=== PATIENT | male | born 1945 | race Caucasian/White ===

== ENCOUNTER 2017-11-18 17:52 | Emergency (ER) | payer OTHER, MEDICARE ==
[~2017-11-18] VITALS: Ht 167.6 cm; Wt 79.9 kg
[~2017-11-18 17:52] MED LIST: AMLO-110 PO; ASPI81TA28 PO; DXY100 PO; LEVE500T13 PO; LISI-788 PO; TRMCR130WC TOP
[2017-11-18 17:57] VITALS: Ht 167.6 cm; Wt 79.9 kg
--- NOTE | 2017-11-18 18:39 | EMERGENCY ROOM VISIT NOTE ---
History Report prepared by Kyaw: Ish Garcia Under the Supervision of: Dr. Raghav Neely D.O. First contact with patient: 18:28 Chief Complaint: HYPERTENSION Stated Complaint: ELEVATED BLOOD PRESSURE 192/96 History of Present Illness The patient is a 72 year old male who presents to the Emergency Room with concerns over recent blood pressure irregularities. The patient states that his blood pressure has been "jumping around" and notes that today his pressure was 197 systolically. He called his PCP and a nurse instructed him to come to the emergency department. He denies any related symptoms and notes he "feels great. " He denies any headache, weakness, chest pain, or shortness of breath. He has a history of hypertension and takes medications daily. Source of History: patient Onset: Recent Position: other (Cardiovascular) Quality: other (HTN) Associated Symptoms: No headache, No chest pain, No SOB Review of Systems See HPI for pertinent positives & negatives. A total of 10 systems reviewed and were otherwise negative. Past Medical & Surgical Medical Problems: (1) Cellulitis Family History Hypertension Social History Smoking Status: Never Smoker Marital Status: Housing Status: lives with family, lives with significant other Occupation Status: retired Current/Historical Medications Scheduled Amlodipine (Norvasc), 5 MG PO DAILY Aspirin (Aspirin Ec), 81 MG PO DAILY Levetiracetam (Keppra), 500 MG PO BID Lisinopril/Hctz (Zestoretic 20MG/25MG), 1 TAB PO DAILY Allergies Coded Allergies: No Known Allergies (Unverified , 11/18/17) Physical Exam Vital Signs Date Time Temp Pulse Resp B/P (MAP) Pulse Ox O2 Delivery O2 Flow Rate FiO2 11/18/17 21:02 36.8 60 16 164/96 96 11/18/17 20:04 60 16 164/96 96 Room Air 11/18/17 19:13 64 11/18/17 17:57 36.8 64 16 189/97 96 Room Air Physical Exam GENERAL: Patient is awake, alert, and in no acute distress. Patient is resting comfortably and showing no signs of anxiety EYES: The conjunctivae are clear. The pupils are round and reactive. EARS, NOSE, MOUTH AND THROAT: The nose is without any evidence of any deformity. Mucous membranes are moist tongue is midline NECK: The neck is nontender and supple. RESPIRATORY: Normal respiratory effort is noted there is no evidence of wheezing rhonchi or rales CARDIOVASCULAR: Regular rate and rhythm noted there no murmurs rubs or gallops normal S1 normal S2 GASTROINTESTINAL: The abdomen is soft. Bowel sounds are present in all quadrants. Abdomen is nontender MUSCULOSKELETAL/EXTREMITIES: There is no evidence of gross deformity full range of motion is noted in the hips and shoulders SKIN: There is no obvious evidence of any rash. There are no petechiae, pallor or cyanosis noted. NEUROLOGIC: Patient is awake alert and oriented x3 strength is symmetric patellar reflexes are 2+ bilaterally Medical Decision & Procedures ER Provider Diagnostic Interpretation: Radiology results as stated below per my review and radiologist interpretation: CHEST ONE VIEW PORTABLE CLINICAL HISTORY: Atypical chest pain COMPARISON STUDY: June 23, 2011 FINDINGS: The cardiac and mediastinal contours are normal. There is no evidence of focal pulmonary consolidation. There is no evidence of failure. No pleural effusions are visualized.[ IMPRESSION: No active disease in the chest. Electronically signed by: Miguel Ángel Payne M.D. 11/18/2017 7:20 PM Dictated Date/Time: 11/18/2017 7:20 PM Laboratory Results 11/18/17 19:10 Red Blood Count 4.99, Mean Corpuscular Volume 88.2, Mean Corpuscular Hemoglobin 32.3, Mean Corpuscular Hemoglobin Concent 36.6, Mean Platelet Volume 9.9, Neutrophils (%) (Auto) 58.6, Lymphocytes (%) (Auto) 30.9, Monocytes (%) (Auto) 7.4, Eosinophils (%) (Auto) 2.6, Basophils (%) (Auto) 0.5, Neutrophils # (Auto) 3.64, Lymphocytes # (Auto) 1.92, Monocytes # (Auto) 0.46, Eosinophils # (Auto) 0.16, Basophils # (Auto) 0.03 11/18/17 19:10 Test 11/18/17 19:10 11/18/17 20:42 White Blood Count 6.21 K/uL (4.8-10.8) Red Blood Count 4.99 M/uL (4.7-6.1) Hemoglobin 16.1 g/dL (14.0-18.0) Hematocrit 44.0 % (42-52) Mean Corpuscular Volume 88.2 fL (80-100) Mean Corpuscular Hemoglobin 32.3 pg (25-34) Mean Corpuscular Hemoglobin Concent 36.6 g/dl (32-36) Platelet Count 220 K/uL (130-400) Mean Platelet Volume 9.9 fL (7.4-10.4) Neutrophils (%) (Auto) 58.6 % Lymphocytes (%) (Auto) 30.9 % Monocytes (%) (Auto) 7.4 % Eosinophils (%) (Auto) 2.6 % Basophils (%) (Auto) 0.5 % Neutrophils # (Auto) 3.64 K/uL (1.4-6.5) Lymphocytes # (Auto) 1.92 K/uL (1.2-3.4) Monocytes # (Auto) 0.46 K/uL (0.11-0.59) Eosinophils # (Auto) 0.16 K/uL (0-0.5) Basophils # (Auto) 0.03 K/uL (0-0.2) RDW Standard Deviation 41.6 fL (36.4-46.3) RDW Coefficient of Variation 13.1 % (11.5-14.5) Immature Granulocyte % (Auto) 0.0 % Immature Granulocyte # (Auto) 0.00 K/uL (0.00-0.02) Anion Gap 4.0 mmol/L (3-11) Est Creatinine Clear Calc Drug Dose 59.4 ml/min Estimated GFR () 76.8 Estimated GFR (Non- 66.2 BUN/Creatinine Ratio 13.3 (10-20) Calcium Level 8.8 mg/dl (8.5-10.1) Total Bilirubin 0.7 mg/dl (0.2-1) Direct Bilirubin 0.2 mg/dl (0-0.2) Aspartate Amino Transf (AST/SGOT) 14 U/L (15-37) Alanine Aminotransferase (ALT/SGPT) 26 U/L (12-78) Alkaline Phosphatase 68 U/L (45-117) Troponin I < 0.015 ng/ml (0-0.045) Total Protein 7.5 gm/dl (6.4-8.2) Albumin 4.1 gm/dl (3.4-5.0) Urine Color YELLOW Urine Appearance CLEAR (CLEAR) Urine pH 7.0 (4.5-7.5) Urine Specific [place] 1.013 (1.000-1.030) Urine Protein NEG (NEG) Urine Glucose (UA) NEG (NEG) Urine Ketones NEG (NEG) Urine Occult Blood NEG (NEG) Urine Nitrite NEG (NEG) Urine Bilirubin NEG (NEG) Urine Urobilinogen NEG (NEG) Urine Leukocyte Esterase NEG (NEG) Laboratory results per my review. ECG Indication: other (hypertension) Rate (beats per minute): 57 Rhythm: sinus bradycardia Findings: no acute ischemic change, no ectopy Comparison ECG Date: 06/23/2011 Change: no significant change ED Course 1832: The patient was evaluated in room C4. A complete history and physical examination were performed. 2051: Upon reevaluation, the patient is resting in bed, he is still comfortable. I discussed the results and treatment plan with him. He verbalized agreement of the treatment plan. The patient was discharged home. Medical Decision Differential Diagnosis was concerning for hypertension. Nursing notes reviewed. The patient is a 72-year-old male who has a history of hypertension who presented to the emergency department because his home readings have been elevated more than usual. The patient states that he has been compliant with his medications. He's had no medication changes recently. He has no symptoms including at this time he denies having chest pain shortness of breath dizziness headache or difficulty ambulating. The patient called his primary care physician to get an appointment but he was told to go to the emergency department. I discussed the patient's laboratory and radiographic studies with him. He was in the emergency Department his blood pressure improved. He was encouraged to rest and avoid any strenuous activity. He was also encouraged to continue all medications as prescribed. He was set up with an appointment by the emergency Department case monitor. He was encouraged to keep this appointment but return to the emergency department immediately if symptoms change worsen or the need arises. Medication Reconcilliation Current Medication List: was personally reviewed by me Blood Pressure Screening Patient's blood pressure: Elevated blood pressure Blood pressure disposition: Referred to PCP Impression Primary Impression: Hypertension Scribe Attestation The scribe's documentation has been prepared under my direction and personally reviewed by me in its entirety. I confirm that the note above accurately reflects all work, treatment, procedures, and medical decision making performed by me. Departure Information Dispostion Home / Self-Care Referrals Angy,Noman F.JR,M.D.(NIGEL) (PCP) Forms HOME CARE DOCUMENTATION FORM, IMPORTANT VISIT INFORMATION, WORK / SCHOOL INSTRUCTIONS Patient Instructions My [facility] Additional Instructions Continue all medications as prescribed. Rest and avoid any strenuous activity. Follow-up with your family doctor as scheduled for a blood pressure check. Return to the emergency department immediately symptoms change worsen or the need arises. Problem Qualifiers Primary Impression: Hypertension Hypertension type: unspecified Qualified Codes: I10 - Essential (primary) hypertension
--- NOTE | 2017-11-18 19:21 | DIAGNOSTIC IMAGING REPORT ---
CHEST ONE VIEW PORTABLE CLINICAL HISTORY: Atypical chest pain COMPARISON STUDY: June 23, 2011 FINDINGS: The cardiac and mediastinal contours are normal. There is no evidence of focal pulmonary consolidation. There is no evidence of failure. No pleural effusions are visualized.[ IMPRESSION: No active disease in the chest. Electronically signed by: Miguel Ángel Payne M.D. 11/18/2017 7:20 PM Dictated Date/Time: 11/18/2017 7:20 PM
[2017-11-18 19:37] LABS: BASO % 0.5 %; BASO ABS # 0.03 K/uL (0-0.2); EOS % 2.6 %; EOS ABS # 0.16 K/uL (0-0.5); HEMOGLOBIN 16.1 g/dL (14.0-18.0); LYMPH % 30.9 %; LYMPH ABS # 1.92 K/uL (1.2-3.4); MEAN CELL VOLUME 88.2 fL (80-100); MEAN CORPUSCULAR HEMOGLOBIN 32.3 pg (25-34); MEAN CORPUSCULAR HGB CONC 36.6 g/dl (32-36); MEAN PLATELET VOLUME 9.9 fL (7.4-10.4); MONO % 7.4 %; MONO ABS # 0.46 K/uL (0.11-0.59); NEUT % 58.6 %; NEUT ABS # 3.64 K/uL (1.4-6.5); PLATELET COUNT 220 K/uL (130-400); RED CELL DISTRIBUTION WIDTH CV 13.1 % (11.5-14.5); RED CELL DISTRIBUTION WIDTH SD 41.6 fL (36.4-46.3); WHITE BLOOD COUNT 6.21 K/uL (4.8-10.8)
[2017-11-18 20:04] LABS: ALBUMIN 4.1 gm/dl (3.4-5.0); ALT/SGPT 26 U/L (12-78); AST/SGOT 14 U/L (15-37); BLOOD UREA NITROGEN 15 mg/dl (7-18); CALCIUM 8.8 mg/dl (8.5-10.1); CARBON DIOXIDE 31 mmol/L (21-32); GLUCOSE 90 mg/dl (70-99); POTASSIUM 3.5 mmol/L (3.5-5.1); SODIUM 140 mmol/L (136-145)
[2017-11-18 20:08] LABS: ALKALINE PHOSPHATASE 68 U/L (45-117); TOTAL PROTEIN 7.5 gm/dl (6.4-8.2)
[2017-11-18 21:02] VITALS: BP 164/96; PULSE 60; TEMP 36.8; O2SAT 96
== END 2017-11-18 21:03 | disposition home or self-care (01) ==
LOC: C.EDB 17:54 → C.EDC 21:03
DX: I10 Essential (primary) hypertension (principal); Z82.49 Family history of ischemic heart disease and other diseases of the circulatory system; Z79.82 Long term (current) use of aspirin; Z79.899 Other long term (current) drug therapy

== ENCOUNTER 2024-08-03 05:05 | Observation (INO) ==
--- NOTE | 2024-06-19 13:33 | PAT Medication Instructions ---
Medication Instructions Date of Service June 19, 2024 Home Medications carvedilol 3.125 mg tablet 3.125 mg PO QAM hydrochlorothiazide 25 mg tablet 25 mg PO QAM levetiracetam 500 mg tablet (Keppra) 500 mg PO BID atorvastatin 20 mg tablet 20 mg PO QAM lisinopril 40 mg tablet 40 mg PO QAM DO NOT take the morning of surgery hydrochlorothiazide 25 mg tablet 25 mg PO QAM lisinopril 40 mg tablet 40 mg PO QAM Take morning of surgery With a small sip of water, OTHERWISE NOTHING TO EAT OR DRINK AFTER MIDNIGHT: carvedilol 3.125 mg tablet 3.125 mg PO QAM levetiracetam 500 mg tablet (Keppra) 500 mg PO BID atorvastatin 20 mg tablet 20 mg PO QAM Take evening before surgery levetiracetam 500 mg tablet (Keppra) 500 mg PO BID Other Notes If you have any questions please call us at [phone] or [phone] or [phone] or [phone]
--- NOTE | 2024-06-29 08:21 | Anesthesiology Consultation ---
Date of Service June 29, 2024 Assessment & Plan (1) Encounter for pre-operative examination: - Check BSG AM DOS (Elevated glucose at 188 on preop labs. Patient denies prediabetes/diabetes history. Will update BSG DOS) - Infectious disease screening: Per assessment on 06/29/24: No known recent infectious disease contacts or current infectious disease symptoms. - Outpatient joint assessment: Pt currently scheduled for inpatient pathway. If surgeon requests review for outpatient joint pathway, patient is not recommended candidate for outpatient joint program from anesthesia standpoint based on available information. Chart Review Chart Review: Acceptable Risk for Surgery and Patient seen in Pre Admission Testing Teaching & Discussion Pre-Anesthesia Teaching/Discussion Notes: Instructed NPO after midnight before surgery,except medications with 15 cc of water. Medication instructions provided according to the PAT guidelines. History Surgery Operation Date: 08/03/24 09:15 Proposed Procedures p Left Total Knee Arthroplasty - Kishor Noonan, Height/Weight Height: 5 ft 5 in Weight: 79.6 kg Allergies Allergy/AdvReac Type Severity Reaction Status Date / Time No Known Allergies Allergy Verified 06/17/24 09:13 Medications Home Medications Medication Instructions Recorded Confirmed Last Taken carvedilol 3.125 mg tablet 3.125 mg PO QAM 09/25/21 06/17/24 10/11/21 hydrochlorothiazide 25 mg tablet 25 mg PO QAM 09/25/21 06/17/24 Unknown levetiracetam 500 mg tablet 500 mg PO BID 09/25/21 06/17/24 10/04/21 (Keppra) atorvastatin 20 mg tablet 20 mg PO QAM 06/17/24 06/17/24 Unknown lisinopril 40 mg tablet 40 mg PO QAM 06/17/24 06/17/24 Unknown Past Medical History Medical History 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) Life flighted to [place] from [facility] No surgical intervention, medically managed and "resolved" per patient History of skin cancer nose, removal Hypertension Osteoarthritis of left knee Seizure Occurred after UTI sepsis 2010 (No seizure since) Taking Keppra Tendonitis of shoulder, right Exercise / Class Metabolic Activity II 4-5 Yardwork/Stairs/Walk up hill Past Family History Family History Other No family history of adverse response to anesthesia Past Surgical History Surgical History History of colonoscopy History of knee surgery Right History of left cataract surgery History of right cataract surgery 10[place]2021, [facility] [place] Past Anesthesia History No Hx of Anesthesia Complications and No Family Hx of Anesthesia Complications History of PONV No Hx of PONV and No Hx of Motion Sickness Social History Smoking Status: Never smoker Do You Dip or Chew Tobacco: No Hx Alcohol Use: No Hx Substance Use: No substance use type: does not use Review of Systems Patient denies chest pain, shortness of breath, dyspnea on exertion, fever, chills, cough, wheezing, palpitations. Physical Exam Vital Signs BP 197/101 > 177/88 with manual recheck (patient states he did not take his BP meds this morning. After PAT visit, he took his medication and did a home recheck BP which came back improved at 150/80. Patient was advised of the importance of med compliance and advised to contact PCP if persistently elevated.) P 65 TEMP 97.6 SP02 96%RA RESP 18 Physical Full cervical extension range of motion. Full TMJ range of motion. TMD 3 finger breaths Mallampati Score III Dentition: several missing teeth, upper partial Lungs: clear throughout to auscultation Cardiac: regular rate and rhythm, no murmurs noted Spine: normal Carotid arteries: negative bruit Extremities: no LE edema Lab Results Anesthesia Preop Results Results Anesthesia Widget: WBC 8.43 K/ul (4.8-10.8) 06/29/24 Hgb 16.0 g/dl (14.0-18.0) 06/29/24 Hct 45.6 % (42.0-52.0) 06/29/24 Plt 214 K/uL (130-400) 06/29/24 Na 140 mmol/L (136-145) 06/29/24 K 3.5 mmol/L (3.5-5.1) 06/29/24 Cl 102 mmol/L (98-107) 06/29/24 CO2 31 mmol/L (21-32) 06/29/24 BUN 22 mg/dl (6-23) 06/29/24 Creat 1.03 mg/dl (0.6-1.4) 06/29/24 Glucose Level 188 mg/dl (70-99(Fasting)) H 06/29/24 PT 10.3 Seconds (9.0-12.0) 06/29/24 PTT 26 Seconds (21-31) 06/29/24 INR 0.9 (0.9-1.1) 06/29/24 Blood Type A Negative 06/29/24 Antibody Screen NEGATIVE 06/29/24 Testing Electrocardiogram Date: 06/29/24 NSR at 63bpm. LAD. iRBBB. NS ST/TWA. Chest X-Ray Date: 06/29/24 Findings: + NAD
--- NOTE | 2024-07-30 09:21 | History & Physical Report ---
Date of Service July 30, 2024 Assessment & Plan (1) Osteoarthritis of left knee: We will proceed with a left total knee arthroplasty. Postoperatively he will be started on aspirin for DVT prophylaxis and kept overnight in the hospital for postop medical management. He plans to have the hospital set up home health before discharge. History of Present Illness Chief Complaint: Osteoarthritis of the left knee. Primary Care Provider: Vadim Post MD Wallace is a pleasant 78-year-old male who has been dealing with chronic increasing left knee pain. He has been seeing Dr. Everett who has done extensive conservative treatment including multiple injections. Unfortunately, his knee pain is getting worse. He is having trouble going up and down stairs. He is having trouble walking long distances. X-rays and clinical exam and been diagnostic for advanced osteoarthritis of the left knee. After failing conservative treatment, he has elected to proceed with a left total knee arthroplasty. Allergies Allergy/AdvReac Type Severity Reaction Status Date / Time No Known Allergies Allergy Verified 06/17/24 09:13 Home Medications Medication Instructions Recorded Confirmed Type carvedilol 3.125 mg tablet 3.125 mg PO QAM 09/25/21 06/17/24 History hydrochlorothiazide 25 mg tablet 25 mg PO QAM 09/25/21 06/17/24 History levetiracetam 500 mg tablet 500 mg PO BID 09/25/21 06/17/24 History (Keppra) atorvastatin 20 mg tablet 20 mg PO QAM 06/17/24 06/17/24 History lisinopril 40 mg tablet 40 mg PO QAM 06/17/24 06/17/24 History magnesium oxide 400 mg (241.3 mg 400 mg PO DAILY #7 tabs 07/18/24 Rx magnesium) tablet (MagOx) amlodipine 2.5 mg tablet 2.5 mg PO QAM 07/27/24 07/27/24 History Past Med/Surg History Problem List Hypertension (Acute) Leukocytosis (Acute) Hypomagnesemia (Acute) Acute dehydration (Acute) Syncope (Acute) Osteoarthritis of left knee Encounter for pre-operative examination Medical History Osteoarthritis of left knee Tendonitis of shoulder, right History of skin cancer nose, removal 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) Life flighted to [place] from [facility] No surgical intervention, medically managed and "resolved" per patient Seizure Occurred after UTI sepsis 2010 (No seizure since) Taking Keppra Hypertension Surgical History History of right cataract surgery 10/2021, [facility] [place] History of left cataract surgery History of knee surgery Right History of colonoscopy Family History Other No family history of adverse response to anesthesia Social History Smoking Status: Former smoker Second Hand Exposure: No; Do You Dip or Chew Tobacco: No; Tobacco Cessation Education Requested by Patient: No Hx Alcohol Use: No Hx Substance Use: No Preferred Language: Bangladeshi Communication Ability: Effective Nurse Substance Abuse Required: No Beliefs That Will Affect Care: None Current Living Situation: Alone Other Information That Helps Us Care for You: No Feels Safe at Home: Yes Safety Concerns: Feels Safe At This Time Assistive Devices: Glasses Review of Systems All systems reviewed & are unremarkable except as noted in HPI & below. Physical Exam On physical exam of the left knee, he has a slight varus deformity. He has tenderness to palpation of the distal medial femoral condyle and over the medial joint line.. Constitutional WD/WN, vitals as above Eyes PERRL, conjunctivae normal, anicteric sclerae ENMT external ear and nose normal, oropharynx normal Neck trachea midline, no thyromegaly Respiratory normal respiratory effort Cardiovascular RRR, no murmur, no edema Gastrointestinal (Abdomen) normal bowel sounds, soft, nontender, no hepatosplenomegaly Psychiatric A+Ox3, euthymic affect Results & Data Results & Data Laboratory Results . Diagnostic Findings X-rays of the left knee show advanced osteoarthritis with joint space narrowing osteophyte formation and [id number] articulation. PG Care Time/CCT Total # of Minutes Spent Total Time Spent with Patient: Total time spent is greater than 50% in coordination of care (as documented) at patient's floor/unit and/or counseling patient: Coding Level of Care Code None Diagnoses Osteoarthritis of left knee M17.12
--- OUTSIDE RECORDS SUMMARY | 2024-08-03 05:11 | External Medical Summary ---
Author Name Unknown Address Unknown Organization K01:[facility] [address] [place] [id number] Laboratory Report Ordering Provider Test Date Status SELENE RODRIGUES 07/27/2024 11:32:35 Final Observation Date Value Abnormality Reference (Units ) Status Magnesium 07/27/2024 11:32:35 2.0 1.5-2.6 (m g/dL) Final Performing Location [facility] [address] [place] [id number]
--- OUTSIDE RECORDS SUMMARY | 2024-08-03 05:11 | External Medical Summary | Summary of Care ---
Author Name Unknown Organization [facility] Address [address] [place] [address] Phone [phone] Care Team Providers Care Card Sorter Name Role Phone Vadim Post MD Primary Care Provider [phone] Reason for Visit * Reason Comments Outpatient Testing Encounter Details Date Type Department Care Team (Late st Contact Info) Description 07/27/2024 11:40 AM EDT Laboratory Laboratory, [facility] [address] [place] [address] [facility] [address] [place] [address] Hypomagnesemia Allergies No known active allergiesdocumented as of this encounter (statuses as of 07/27/2024) Medications Medication Sig Dispensed Refills Start Date End Date Status Lisinopril 40 MG Oral Tablet Take 1 Tablet by mouth in the morning. 90 Tablet 3 09/16/2023 Active Carvedilol 3.125 MG Oral Tablet (Coreg) TAKE 1 TABLET BY MOUTH IN THE MORNING AND 1 TABLET BEFORE BEDTIME WITH FOOD 180 Tablet 3 10/26/2023 Active Fluticasone Propionate 50 MCG/ACT Nasal Suspension (Flonase) Administer 2 Sprays into each nostril in the morning. 16 g 11 11/25/2023 Active hydroCHLOROthiazide 25 MG Oral Tablet (Hydrodiuril)Indica tions:HTN, goal below 140/90 TAKE 1 TABLET BY MOUTH EVERY DAY 90 Tablet 2 01/27/2024 Active Atorvastatin Calcium 20 MG Oral Tablet (Lipitor) TAKE 1 TABLET BY MOUTH EVERY DAY 90 Tablet 3 01/27/2024 Active levETIRAcetam 500 MG Oral Tablet (Keppra) TAKE 1 TABLET BY MOUTH EVERY DAY IN THE MORNING AND AT BEDTIME 180 Tablet 1 06/16/2024 Active Magnesium Oxide -Mg Supplement 400 (240 Mg) MG Oral Tablet (Mag-Ox) Take 1 Tablet by mouth in the morning. 07/18/2024 Active amLODIPine Besylate 2.5 MG Oral Tablet (Norvasc) Take 1 Tablet by mouth in the morning. 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 Needs fu MRI in 08/2014 MRI brain 07/2014 stable 8x8 mm follow-up MRI 07/2016 Stable 06/2016, follow-up 06/2019 HTN, goal below 150/90 documented as of this encounter (statuses as of 07/27/2024) Resolved Problems Problem Noted Date Diagnosed Date Resolved Date Kidney disease, chronic, sta ge III (GFR 30-59 ml/min) 10/18/2015 07/30/2017 Intracranial abscess 07/28/2014 015 Abscess of brain 11/08/2011 05/21/2014 Grand mal status 06/24/2011 04/20/2015 Altered mental status 06/24/20112012 GRAM-NEG SEPTICEMIA 06/24/2011 11/24/19 13 Acute renal insufficiency 06/24/2011 Abnormal results of liver function studies 06/24/2011 05/21/2014 THROMBOCYTOPENIA 06/24/2011 05/21/2014 HX-SKIN MALIGNANCY NEC - R ala 10/200908/16/2010 10/17/2022 Overview: BCC midback 10/2020, BCCs R cheek 10/2018, L nasal tip 08/2015, R nasal ala 10/2009 ADVANCE DIRECTIVE INFORMATION 10/19/2009 04/10/2021 Overview: Yes, Patient instructed to provide copy of advance directive for provider to review and to be scanned into Electronic Medical Record Impotence of organic origin 10/21/2008 04/10/2021 DVT of lower extremity (deep venous thrombosis) 11/24/2012 Overview: right Tubular adenoma of colon documented as of this encounter (statuses as of 07/27/2024) Immunizations Name Administration Dates Next Due COVID-19 mRNA, LNP-s, No Pre serve, 2-Dose Series (Pfizer) 01/27/2021,01/06/2021 Pneumococcal Conjugate Vacc, 13 Valent (Prevnar) 04/17/2016 Pneumococcal Polysaccharide PPV23 (Pneumovax) 10/20/2009 Season Influenza, Quad, PF, Adjuvanted, 65+ Yrs, IM (FLUAD) 08/16/2020 Seasonal Influenza, High Dos e, Trivalent, PF, IM (Fluzone HD) 07/27/2024 Seasonal Influenza, PF, 6 M & above, IM , (FluLaval or Fluzone) 09/09/2018,07/30/2017 Seasonal Influenza, Quadriva lent Hd (Fluzone Hd) 09/16/2023,10/17/2022,10/16/2021 Seasonal Influenza, Quadriva lent, No Preserve, IM 08/15/2016,10/18/2015 Seasonal Influenza, Trivalen t, (IIV3), with Preserv, (Fluzone) 07/28/2014,07/21/2013,09/11/2012,10/20,10/21/2008,09/14/2006 Seasonal Influenza, Trivalen t, Adjuvanted, 65+ YRS, PF, (Fluad) 08/06/2019 TDAP (age 10 and older)(Boostrix) 02/09/2023,01/2015 TDAP, Age 7 and older, IM (Adacel) 04/28/2008 Varicella Zoster Vaccine (Adult) 09/16/2013 Zoster Vaccine Recombinant (Shingrix) 06/04/2020 documented as of this encounter Social History Tobacco Use Types Packs/Day Years Used Date Smoking Tobacco: Never Smokeless Tobacco: Never Alcohol Use Standard Drinks/Week Comments No 0 (1 standard drink = 0.6 oz pur e alcohol) PHQ-2 Answer Date Recorded PHQ Adult Total Score 0 10/17/2022 Hunger Vital Sign Answer Date Recorded Within the past 12 months, y ou worried that your food would run out before you got the money to buy more. Never true 10/17/20 22 Within the past 12 months, t he food you bought just didn't last and you didn't have money to get more. Never true 10/17/2022 Sex and Gender Information Value Date Recorded Sex Assigned at Male 04/13/2020 10:29 AM EDT Gender Identity Male 04/13/2020 10:29 AM EDT Sexual Orientation Straight 04/13/2020 10 :29 AM EDT Job Start Date Occupation Industry Not on file Not on file Not on file documented as of this encounter Plan of Treatment Upcoming Encounters Date Type Department Care Team (Late st Contact Info) Description 10/19/2024 10:20 AM EST Office Visit Family Practice [facility] [address] [address] [address] Vadim Post MD [address] [place] [address] 04/29/2025 10:00 AM EDT Office Visit Neurology [facility] [address] [place] [address] Zandra Bradford MD [address] [place] [address] 06/15/2025 11:15 AM EDT Office Visit Dermatology [facility] [address] [place] [address] Woody Camacho MD [address] [place] [address] Pending Results Name Type Priority Associated Diagnoses Date /Time MAGNESIUM Lab Routine Hypomagnesemia 07/27/2024 11:32 AM EDT BASIC METABOLIC PANEL Lab Routine Hypomagnesemia 07/27/2024 11:32 AM EDT Health Maintenance Due Date Last Done Comments Adult Wellness Visit 06/10/2018 06/10/2017 Zoster Vaccines (3 of 3) 07/30/2020 06/04/2020, 09/04 Colonoscopy 07/11/2022 07/11/2021, 05/2021, 05/30/2020, Additional history exists Depression Screening 10/17/2023 10/17/2022 COVID-19 Vaccine ( season) 2024 01/27/2021, 01/06/2021 GFR 10/14/2024 10/14/2023, 04/05, 10/17/2022, Additional history exists HbA1c 10/14/2024 10/14/2023, 10/04, 04/14/2021, Additional history exists Albumin/Creatinine Ratio 10/14/2026 10/14/2023 DTap/Tdap Vaccines (4 - Td or Tdap) 02/09/2033 02/09/2023, 06/06/2015, 04/28/2008 Pneumococcal Vaccine: 65+ Years Completed 04/17/2016, 10/20/2009 RETIRED - COLONOSCOPY-ANNUAL AGES 18-100 Discontinued 07/11/2021, 07/11/2021, 05/30/2020, Additional history exists Influenza Vaccine (FLU shot) Completed 07/27/2024, 09/16/2023, 10/17/2022, Additional history exists HPV (Gardasil) Vaccine Aged Out No lo nger eligible based on patient's age to complete this topic Hepatitis B Vaccine Aged Out No longe r eligible based on patient's age to complete this topic MENINGOCOCCAL (MENACTRA/MENVEO) Aged Out No longer eligible based on patient's age to complete this topic documented as of this encounter Medical Devices Implanted Type Area Rate Engineer Device Identifier Shelf Expiration Date Model / Serial / Lot Clip Quick 2.8mm 230cm - [id number] Implanted:Qty: 1 on 05/30/2020 by Kenzie Lim MD at ENDOSCOPY [facility] [employer] [facility] 09/02/2022 [id number] documented as of this encounter Visit Diagnoses Diagnosis Hypomagnesemia Disorders of magnesium metabolism documented in this encounter Advance Directives * Full Code (Latest Code Status on File) Date Activated Date Inactivated Comments 06/24/2011 3:57 AM 07/07/2011 4:27 PM This order re flects the patients wishes and were consensually agreed upon. Question Answer Comments Discussion of Advance Directives occurred with: Not Discussed Does the patient have a Living Will? No Does the patient have Health Care Power of Attor capo? No Care Teams Card Sorter Relationship Specialty Start Date End Date Vadim Post MD [address] [facility] [place] [address] PCP - General Family Medicine 04/14/21 documented as of this encounter
--- OUTSIDE RECORDS SUMMARY | 2024-08-03 05:11 | External Medical Summary | Summary of Care ---
Author Name Unknown Organization [facility] Address [address] [place] [address] Phone [phone] Care Team Providers Care Boilermaker'S Assistant Name Role Phone Vadim Post MD Primary Care Provider [phone] Reason for Visit * Reason Comments Emergency Department Follow-Up Pt here w ith daughter for ER follow up Encounter Details Date Type Department Care Team (Late st Contact Info) Description 07/27/2024 11:00 AM EDT Office Visit Family Practice [facility] [address] [facility] [place] [address] Vadim Post MD [address] [facility] [place] [address] Hypomagnesemia*; History of syncope; Need for influenza vaccination; Seizures, generalized convulsive (HCC) Allergies No known active allergiesdocumented as of [...] the morning. 16 g 11 11/25/2023 Active hydroCHLOROthiaz deanne 25 MG Oral Tablet (Hydrodiuril)Ind ications:HTN, goal below 140/90 TAKE 1 TABLET BY [...] the morning. 90 Tablet 3 07/27/2024 Active CoQ10 30 MG Oral Capsule Take 1 Capsule by mouth in the morning. 30 Capsule 3 02/13/2023 Discontinued documented as of this encounter (statuses as [...] on file documented as of this encounter Last Filed Vital Signs Vital Sign Reading Time Taken Comments Blood Pressure 168/102 07/27/2024 11:05 AM EDT Pulse 68 07/27/2024 11:05 AM EDT Temperature 36.6 C (97.8 F) 07/27/2024 11:05 AM E DT Respiratory Rate 18 07/27/2024 11:05 AM EDT Oxygen Saturation - - Inhaled Oxygen Concentration - - Weight 79.4 kg (175 lb) 07/27/2024 11:05 AM EDT Height 162.6 cm (5' 4") 07/27/2024 11:05 AM EDT Body Mass Index 30.04 07/27/2024 11:05 AM EDT documented in this encounter Progress Notes * Vadim Post MD - 07/27/2024 11:47 AM EDT SUBJECTIVE: Wallace Heaton is a 79 year old male. Chief Complaint Patient presents with Emergency Department Follow-Up Pt here with daughter for ER follow up HPI: Here with daughter for ER follow up. He was doing some heavy manual labor outdoors and ended up going inside of his house where he had a 45 second syncopal episode. Fortunately his family was near him and took him to the ER. The ER work up was essentially unremarkable with the exception of some hype rtension and low magnesium. He has been supplementing his magnesium since discharge and feels back to baseline. His BP has been averaging in the 150s/160s over mid 80s/90s. I am going to cautiously add low dose Norvasc 2.5 mg to try to optimize his pressure prior to his upcoming knee replacement next week with Dr. Noonan. Patient Active Problem List Diagnosis HTN, goal below 150/90 Subependymoma (HCC) Seizures, generalized convulsive (HCC) Prediabetes Hammer toes of both feet Dyslipidemia Primary osteoarthritis of both shoulders Overweight (BMI 25.0-29.9) Current Outpatient Medications Medication Sig Dispense Refill Lisinopril 40 MG Oral Tablet Take 1 Tablet by mouth in the morning. 90 Tablet 3 Carvedilol 3.125 MG Oral Tablet (Coreg) TAKE 1 TABLET BY MOUTH IN THE MORNING AND 1 TABLET BEFORE BEDTIME WITH FOOD 180 Tablet 3 Fluticasone Propionate 50 MCG/ACT Nasal Suspension (Flonase) Administer 2 Sprays into each nostril in the morning. 16 g 11 hydroCHLOROthiazide 25 MG Oral Tablet (Hydrodiuril) TAKE 1 TABLET BY MOUTH EVERY DAY 90 Tablet 2 Atorvastatin Calcium 20 MG Oral Tablet (Lipitor) TAKE 1 TABLET BY MOUTH EVERY DAY 90 Tablet 3 levETIRAcetam 500 MG Oral Tablet (Keppra) TAKE 1 TABLET BY MOUTH EVERY DAY IN THE MORNING AND AT BEDTIME 180 Tablet 1 Magnesium Oxide -Mg Supplement 400 (240 Mg) MG Oral Tablet (Mag-Ox) Take 1 Tablet by mouth in the morning. amLODIPine Besylate 2.5 MG Oral Tablet (Norvasc) Take 1 Tablet by mouth in the morning. 90 Tablet 3 No current facility-administered medications for this visit. Allergy: Review of patient's allergies indicates: No Known Allergies OBJECTIVE: BP 168/102 | Pulse 68 | Temp 36.6 C (97.8 F) (Tympanic) | Resp 18 | Ht 1.626 m (5' 4") | Wt 79.4 kg (175 lb) | BMI 30.04 kg/m | BSA 1.89 m General: alert, healthy, and no distress Head: Normocephalic, No masses, lesions, tenderness or abnormalities Neck: supple, no adenopathy, no bruits, thyroid normal size, non-tender, without nodularity Lungs: chest symmetric with normal AP diameter, no chest deformities noted, no chest wall tenderness, lungs clear to auscultation Heart: regular rate & rhythm, no murmur, and no gallops Extremities: less than 2 second capillary refill, no joint deformities, effusion, or inflammation Neuro Exam: alert & oriented x 3 with fluent speech, no focal motor/sensory deficits, gait normal, reflexes normal and symmetric ASSESSMENT AND PLAN: (E83.42) Hypomagnesemia (primary encounter diagnosis) Plan: MAGNESIUM, BASIC METABOLIC PANEL -add norvasc 2.5 mg (Z87.898) History of syncope Plan: see HPI (Z23) Need for influenza vaccination Plan: INFLUENZA VAC., TRIVALENT, HD, PF, 65 AND ABOVE, 0.5 ML IM (FLUZONE HD) (R56.9) Seizures, generalized convulsive (HCC) Plan: no recent seizures Follow up as needed. No other complaints were offered at this time. Vadim Post MD documented in this encounter Nursing Notes * Ny Kay LPN - 07/27/2024 11:04 AM EDT The patient has been properly identified by confirmation of name and date of . Chief Complaint Patient presents with Emergency Department Follow-Up Pt here with daughter for ER follow up documented in this encounter Plan of Treatment Upcoming Encounters Date Type Department Care Team (Late st Contact Info) Description 10/19/2024 10:20 AM EST Office Visit [facility] [address] [facility] [place] [address] Vadim Post MD [address] [place] [address] 04/29/2025 10:00 AM EDT Office Visit Neurology [facility] [place] [address] [facility] [place] [address] Zandra Bradford MD [address] [facility] [place] [address] 06/15/2025 11:15 AM EDT Office Visit Dermatology [facility] [place] [address] [facility] [place] [address] Woody Camacho MD [address] [facility] [place] [address] Pending Results Name Type Priority Associated Diagnoses Date /Time MAGNESIUM Lab Routine Hypomagnesemia 07/27/2024 11:32 AM EDT BASIC METABOLIC PANEL Lab Routine Hypomagnesemia 07/27/2024 11:32 AM EDT Scheduled Orders Name Type Priority Associated Diagnoses Orde r Schedule MAGNESIUM Lab Routine Hypomagnesemia Expected: 07/27/2024 (Approximate), Expires: 07/27/2025 BASIC METABOLIC PANEL Lab Routine Hypomagnesemia Expected: 07/27/2024 (Approximate), Expires: 07/27/2025 Health Maintenance Due Date Last Done Comments [...] this encounter Medical Devices Implanted Type Area Package Dyeing Machine Operator Device Identifier Shelf Expiration Date Model / Serial / Lot Clip Quick 2.8mm 230cm - [id number] Implanted:Qty: 1 on 05/30/2020 by Kenzie Lim MD at ENDOSCOPY [facility] [employer] 09/02/2022 [id number] documented as of this encounter Visit Diagnoses Diagnosis Hypomagnesemia- Primary Disorders of magnesium metabolism History of syncope Other specified personal history presenting hazards to health Need for influenza vaccination Need for prophylactic vaccination and inoculation against influenza Seizures, generalized convulsive (HCC) Other convulsions documented in this encounter Advance Directives * [...] Power of Attor capo? No Care Teams Boilermaker'S Assistant Relationship Specialty Start Date End Date Vadim Post MD [address] [facility] [place] [address] PCP - General Family Medicine 04/14/21 documented as of this encounter
--- OUTSIDE RECORDS SUMMARY | 2024-08-03 05:11 | External Medical Summary ---
Author Name Unknown Address Unknown Organization [facility] [address] [place] [address] Laboratory Report Ordering Provider Test Date Status SELENE RODRIGUES 07/27/2024 11:32:35 Final Observation Date Value Abnormality Reference (Units ) Status BUN 07/27/2024 11:32:35 13 6-20 (mg/dL) Final Creatinine 07/27/2024 11:32:35 1.1 0.6-1.2 (mg/dL) Final Glomerular filtration rate/1.73 sq M.predicted [Volume Rate/Area] in Serum, Plasma or Blood by Creatinine-based formula (CKD-EPI) 07/27/2024 11:32:35 67 >=60 (mL/min) Final eGFR is calculated based on the CKD-EPI 2020 equation. Sodium 07/27/2024 11:32:35 142 135-146 (m mol/L) Final Potassium 07/27/2024 11:32:35 4.4 3.5-5.1 (m mol/L) Final Cl 07/27/2024 11:32:35 102 98-107 (mm ol/L) Final CO2 07/27/2024 11:32:35 30 22-32 (mmo l/L) Final Anion gap 07/27/2024 11:32:35 10 7-15 (mmol /L) Final Glucose 07/27/2024 11:32:35 181 Above high normal 70 -120 (mg/dL) Final Calcium 07/27/2024 11:32:35 10.0 8.4-10.2 ( mg/dL) Final Performing Location [facility] [address] [place] [address]
--- OUTSIDE RECORDS SUMMARY | 2024-08-03 05:11 | External Medical Summary | Summary of Care ---
Author Name Unknown Organization [facility] Address [address] [place] [address] Phone [phone] Care Team Providers Care Hospitality Aide Name Role Phone Vadim Post MD Primary Care Provider [phone] Reason for Visit * Reason Onset Date Comments Emergency Department Follow Up 07/20/2024 Encounter Details Date Type Department Care Team (Late st Contact Info) Description 07/20/2024 Telephone Family Practice [facility] [address] [place] [address] Vadim Post MD [address] [place] [address] Emergency Department Follow Up Allergies No known active allergiesdocumented as of this encounter (statuses as of 07/21/2024) Medications Medication Sig Dispensed Refills Start Date End Date Status CoQ10 30 MG Oral Capsule Take 1 Capsule by mouth in the morning. 30 Capsule 3 02/13/2023 Active Lisinopril 40 MG Oral Tablet Take 1 [...] AT BEDTIME 180 Tablet 1 06/16/2024 Active documented as of this encounter (statuses as of 07/21/2024) Active Problems Problem Noted Date Diagnosed Date [...] as of this encounter (statuses as of 07/21/2024) Resolved Problems Problem Noted Date Diagnosed Date [...] as of this encounter (statuses as of 07/21/2024) Immunizations Name Administration Dates Next Due COVID-19 mRNA, LNP-s, No Pre serve, 2-Dose Series (Pfizer) 01/27/2021,01/06/2021 Pneumococcal Conjugate Vacc, 13 Valent (Prevnar) 04/17/2016 Pneumococcal Polysaccharide PPV23 (Pneumovax) 10/20/2009 Season Influenza, Quad, PF, Adjuvanted, 65+ Yrs, IM (FLUAD) 08/16/2020 Seasonal Influenza, PF, 6 M & above, [...] on file documented as of this encounter Miscellaneous Notes * Telephone Encounter - Cele Chávez OSA - 07/21/2024 12:44 PM EDT Pt scheduled via the portal today * Telephone Encounter - Bisi Dinh OSA - 07/20/2024 8:06 AM EDT Patient wants to be seen on 07/27/24 only either first or last appointment of the day with Dr. Post. ED follow up 07/17/24 [place] light headed, passed out, upset stomach Patient states his BP is up but refused all appointments for this week stating his daughter is on vacation. documented in this encounter Plan of Treatment Upcoming Encounters Date Type Department Care Team (Late st Contact Info) Description 07/27/2024 11:00 AM EDT Office Visit [facility] [address] [place] [address] Vadim Post MD [address] [place] [address] 10/19/2024 10:20 AM EST Office Visit [facility] [address] [place] [address] Vadim Post MD [address] [place] [address] 04/29/2025 10:00 AM EDT Office Visit Neurology [facility] [address] [facility] [place] [address] Zandra Bradford MD 200 [facility] [place] [address] 06/15/2025 11:15 AM EDT Office Visit Dermatology [facility] [address] [facility] [place] [address] Woody Camacho MD 200 [facility] [place] [address] Health Maintenance Due Date Last Done Comments Adult Wellness Visit 06/10/2018 06/10/2017 Zoster Vaccines (3 of 3) 07/30/2020 06/04/2020, 09/04 Colonoscopy 07/11/2022 07/11/2021, 05/2021, 05/30/2020, Additional history exists Depression Screening 10/17/2023 10/17/2022 COVID-19 Vaccine ( season) 2024 01/27/2021, 01/06/2021 Influenza Vaccine (FLU shot) (#1) 2024 09/16/2023, 10/17/2022, 10/16/2021, Additional history exists GFR 10/14/2024 10/14/2023, 04/05, 10/17/2022, Additional history exists HbA1c 10/14/2024 10/14/2023, 10/04, 04/14/2021, Additional history exists Albumin/Creatinine Ratio 10/14/2026 10/14/2023 DTap/Tdap Vaccines (4 - Td or Tdap) 02/09/2033 02/09/2023, 06/06/2015, 04/28/2008 Pneumococcal Vaccine: 65+ Years Completed 04/17/2016, 10/20/2009 RETIRED - COLONOSCOPY-ANNUAL AGES 18-100 Discontinued 07/11/2021, 07/11/2021, 05/30/2020, Additional history exists HPV (Gardasil) Vaccine Aged Out No lo nger eligible based on patient's age to complete this topic Hepatitis B Vaccine Aged Out No longe r eligible based on patient's age to complete this topic MENINGOCOCCAL (MENACTRA/MENVEO) Aged Out No longer eligible based on patient's age to complete this topic documented as of this encounter Medical Devices Implanted Type Area Machine Fastener Device Identifier Shelf Expiration Date Model / Serial / Lot Clip Quick 2.8mm 230cm - [id number] Implanted:Qty: 1 on 05/30/2020 by Kenzie Lim MD at ENDOSCOPY [facility] [employer] [facility] 09/02/2022 [id number] documented as of this encounter Advance Directives * Full Code [...] Power of Attor capo? No Care Teams Hospitality Aide Relationship Specialty Start Date End Date Vadim Post MD [address] [place] [address] PCP - General Family Medicine 04/14/21 documented as of this encounter
[2024-08-03] MEDS: GABAPENTIN 300 MG CAP PO SCH (05:53)
[2024-08-03] MEDS: dexAMETHasone**PF** 10 MG/ML VIAL IV SCH (05:53)
[2024-08-03] MEDS: LR 60ML/HR IV SCH (05:54)
[2024-08-03] MEDS: LR 500ML BOLUS, THEN 15ML/HR IV SCH (05:54)
[2024-08-03] MEDS: FAMOTIDINE 20 MG TAB PO SCH (05:54)
[2024-08-03] MEDS: ACETAMINOPHEN 500 MG TAB PO SCH ×2 (05:54→13:41)
[2024-08-03 05:58] LABS: BUN Creatinine Ratio 15.9 (10-20); Calcium 9.5 mg/dl (8.6-10.3); Est GFR (African American) 70.8 ml/min; Est GFR (Non-African American) 61.1 ml/min; Potassium 3.4 mmol/L (3.5-5.1)
[2024-08-03] MEDS ORDERED: ROPIVACAINE 0.5% 5 MG/ML 30 ML VIAL ONE (06:20)
--- NOTE | 2024-08-03 06:29 | History & Physical Bridge Note ---
Date of Service August 03, 2024 History & Physical Bridge Note I have examined the patient, reviewed the History & Physical and in the interval since the performance of the History & Physical I have noted the following changes of clinical significance: no changes noted
[2024-08-03] MEDS ORDERED: fentaNYL citrate PF 100 MCG/2 ML VIAL ONE (06:35)
[2024-08-03] MEDS ORDERED: MIDAZOLAM HCL 1 MG/ML 2ML VIAL ONE (06:35)
[2024-08-03] MEDS ORDERED: ONDANSETRON INJ 2 MG/ML 2 ML VIAL IV PRN ×2 (06:38→09:36)
[2024-08-03] MEDS ORDERED: KETOROLAC 30 MG/ML VIAL IV PRN (06:38)
[2024-08-03] MEDS ORDERED: ATROPINE SULFATE 0.1 MG/ML 10ML SYR IV PRN (06:38)
[2024-08-03] MEDS ORDERED: ePHEDrine sulfate 50 MG/ML AMP IV PRN (06:38)
[2024-08-03] MEDS ORDERED: HYDROmorphone INJ 1 MG/ML SYRINGE IV PRN (06:38)
[2024-08-03] MEDS: TRANEXAMIC ACID 1,000 MG **IV Pre-op IV SCH (06:45)
[2024-08-03] MEDS: ceFAZolin 2000MG 2,000 MG/15 ML SYR IV SCH ×2 (07:03→15:07)
[2024-08-03] MEDS: ORTHO JOINT ANESTHETIC ONE (07:36)
[2024-08-03] MEDS ORDERED: PROPOFOL IV EMULSION 10 MG/ML 20 ML VIAL IV ONE (07:39)
[2024-08-03] MEDS ORDERED: ONDANSETRON INJ 2 MG/ML 2 ML VIAL ONE (07:39)
[2024-08-03] MEDS ORDERED: ePHEDrine sulfate 50 MG/5 ML SYR ONE (07:48)
[2024-08-03] MEDS: ROPIV 0.5% 246mg, Ketorolac 30mg, EPINEPHrine 0.5mg in NSS INFIL SCH (08:00)
[2024-08-03] MEDS: TRANEXAMIC ACID 1,000 MG **IV Intra-op IV SCH (08:04)
--- NOTE | 2024-08-03 08:08 | Operative Report ---
PG Post Operative Report Pre & Post Diagnosis Operation Date: 08/03/24 07:00 Pre-Op Diagnosis: Osteoarthritis of left knee Post-Op Diagnosis: Osteoarthritis of left knee I identified the patient and participated in the time-out.: Yes Procedure Operation Date: 08/03/24 07:00 Actual Procedures p Left Total Knee Arthroplasty(Left) - Kishor Noonan DO Surgeon Kishor Noonan DO [employer] Kishor Brothers PA-C Estimated Blood Loss 30 Findings Consistent with Post-Op Diagnosis Specimens Left femoral and tibial bone Description of Procedure Implants used: I used a [employer] total knee arthroplasty system with a size 8 standard PS femur, E tibia, 31 oval patella, and a size 16 CPS polyethylene bearing. All components were cemented in place with Biomet cement. Wallace arrived [facility] for the above procedure. He was seen in the preoperative holding area and the operative extremity was identified and signed. He was given a preoperative antibiotic, TXA, a spinal anesthetic and an adductor nerve block. He was taken back to the operating room and laid on the table in supine position. He was given basic sedation. The operative knee was then prepped and draped in sterile fashion. A timeout was done, and the patient and the operative extremity was properly identified. A midline incision was made directly over the patella. Dissection was taken down to the extensor mechanism. A subvastus arthrotomy was used. The medial retinaculum was released and the fat pad was mostly excised. The knee was flexed and the ACL, PCL, and meniscus were removed. A drill was sent down the center of the femoral canal followed by an intramedullary flori. Off that flori a distal femoral cutting block was placed. 9 mm was resected off the distal femur at 5 of valgus. A posterior referencing AP sizing guide was then placed on the distal femur. The femur measured to be a size 8. 2 drill holes were placed in 3 of external rotation. A 4-in-1 cutting block was then impacted into place. Anterior, posterior, and chamfer cuts were then made. The proximal tibia was then exposed. An external tibial alignment guide was placed. A tibial cut guide was then anchored in place and the proximal tibia was then resected. The posterior aspect of the knee was then opened up and any additional meniscus fragments and osteophytes were removed. The tibia measured to be a size E. The tibial plate was then placed in the appropriate rotation and the tibia was drilled and punched. Trial components were then placed. I used a size 16 CPS polyethylene insert. The knee was brought through a full range of motion and felt to be stable. The peg holes for the femoral component were then drilled. The patella was then everted and 9 mm was resected off the posterior aspect of the patella. The patella measured to be a size 31 oval. 3 peg holes were then drilled. A trial patella was placed. The knee was once again brought through a full range of motion and felt to be stable. Trial components were then removed. The surrounding soft tissues were injected with 100 cc of an orthopedic pain control cocktail. All components were then cemented into place with Biomet cement. The final polyethylene insert was then snapped into place. Once cement was dry the tourniquet was deflated. Hemostasis was obtained. A dilute betadyne lavage was then done for 3 minutes. The joint was then irrigated with normal saline solution. The subvastus arthrotomy was then closed with #1 Vicryl suture. The skin was closed with 2-0 Vicryl, 3-0V lock suture, and zari. A soft compressive dressing was placed. He was then transferred to a hospital bed and taken to the postanesthesia care unit in stable condition. He tolerated the procedure well. Kishor Brothers PA-C, was present for the entire procedure. He was critical for patient positioning, prepping, draping, retraction exposure, wound closure and application of sterile dressing. I attest to the content of the Intraoperative Record and any orders documented therein. Any exceptions are noted below.
--- NOTE | 2024-08-03 09:16 | Anesthesiology Progress Note ---
Date of Service August 03, 2024 Anesthesia Post Procedure Vital Signs Vital Signs: Temp Pulse Pulse Resp BP Pulse Ox O2 Del Method 08/03/24 09:10 66 13 135/88 92 Room Air 08/03/24 09:00 36.5 C 70 20 128/85 91 Room Air 08/03/24 08:50 72 20 121/79 92 Room Air 08/03/24 08:40 70 20 120/78 99 Oxymask 08/03/24 08:30 37.1 C 72 19 123/73 96 Oxymask 08/03/24 05:41 37.0 C 68 18 171/92 H 95 Room Air O2 Flow Rate 08/03/24 09:10 08/03/24 09:00 08/03/24 08:50 08/03/24 08:40 5 08/03/24 08:30 5 08/03/24 05:41 Transfer of Care Handoff Completed per policy Notes Mental Status: alert / awake / arousable Patient Amnestic to Procedure: Yes Nausea / Vomiting: adequately controlled Pain: adequately controlled Airway Patency, RR, SpO2: stable & adequate BP & HR: stable & adequate Hydration State: stable & adequate Neuraxial Anesthesia: was administered and sensory block is resolving Anesthetic Complications: no major complications apparent
--- NOTE | 2024-08-03 09:17 | XRay Report ---
XR knee LT 1 or 2V routine HISTORY: 79 years-old Male Surgical Post Op left knee arthroplasty COMPARISON: 06/02/2024 TECHNIQUE: 2 views of the left knee FINDINGS: Total joint arthroplasty with patellar resurfacing. Anterior midline skin zari with expected posto perative soft tissue swelling and deep tissue air. No acute fracture, dislocation or unexpected opaqu e foreign body. IMPRESSION: Total arthroplasty with expected postoperative changes. ACT 112: Negative or not required by law. The above report was generated using voice recognition software. It may contain grammatical, syntax o r spelling errors. Electronically signed by: Shailesh Gleason M.D. 08/03/2024 9:15 AM
[2024-08-03] MEDS ORDERED: bisacodyL 10 MG SUPP PR PRN (09:36)
[2024-08-03] MEDS ORDERED: MAGNESIUM HYDROXIDE SUSP 30 ML UDC PO PRN (09:36)
[2024-08-03] MEDS ORDERED: HYDROmorphone INJ 0.5 MG/0.5 ML SYR IV PRN (09:36)
[2024-08-03] MEDS ORDERED: METOCLOPRAMIDE HCL INJ 5 MG/ML 2 ML VIAL IV PRN (09:36)
[2024-08-03] MEDS ORDERED: NALOXONE HCL 0.4 MG/1 ML VIAL/CARP IV PRN (09:36)
[2024-08-03] MEDS: hydroCHLOROthiazide 25 MG TAB PO SCH (09:53)
[2024-08-03] MEDS: levETIRAcetam 500 MG TAB PO SCH (09:53)
[2024-08-03] MEDS: amLODIPine BESYLATE 5 MG TAB PO SCH (09:53)
[2024-08-03] MEDS: carvediloL 3.125 MG TAB PO SCH (09:53)
[2024-08-03] MEDS: lisinopril 40 MG TAB PO SCH (09:53)
[2024-08-03] MEDS: SODIUM CHLORIDE 0.9% 1,000 ML IV SCH (09:55)
[2024-08-03] MEDS: DOCUSATE SODIUM 100 MG CAP PO SCH (11:00)
[2024-08-03] MEDS: ASPIRIN 81 MG ECTAB PO SCH (11:01)
[2024-08-03] MEDS: MULTIVITAMIN TAB PO SCH (11:01)
[2024-08-03] MEDS: ATORVASTATIN 20 MG TAB PO SCH (13:41)
[2024-08-03] MEDS: SENNA 8.6 MG TAB PO SCH (20:15)
--- NOTE | 2024-08-04 07:09 | Orthopedic Progress Note ---
Date of Service August 04, 2024 Assessment & Plan (1) Status post left knee replacement: Overall he is doing very well. He is not having much pain in the left knee. He will be seen by physical therapy today for ambulation and range of motion exercises. The nursing staff can change his dressing after physical therapy. He is on aspirin for DVT prophylaxis. He can be discharged today if a bed becomes available at a rehab facility. Zane Gonsalez was seen and examined at bedside this morning. Overall he is doing fairly well. He is not having much pain in the left knee. He has not been up and ambulating yet on his left leg. He has no complaints.. Review of Systems All systems reviewed & are unremarkable except as noted in HPI & below. Physical Exam On physical examination of the left knee, the dressing is clean and dry. His leg is out full extension. He has active dorsiflexion plantarflexion of his left ankle.. Results & Data Results & Data Laboratory Results . Diagnostic Findings Postoperative x-rays of the left knee show the prosthesis to be in anatomic alignment without any evidence of fracture, dislocation, or loosening.. PG Care Time/CCT Total # of Minutes Spent Total Time Spent with Patient: Total time spent is greater than 50% in coordination of care (as documented) at patient's floor/unit and/or counseling patient: Coding Level of Care Code 47699 Post Operative Follow-Up Diagnoses Status post left knee replacement Z96.652
[2024-08-04] MEDS: dexAMETHasone 4 MG TAB PO SCH (08:16)
[2024-08-04] MEDS: oxyCODONE HCL IR 5 MG TAB (IMMEDIATE RELEASE) PO PRN (11:38)
[2024-08-04 20:17] VITALS: RESP 18; TEMP 97.9
[2024-08-05 07:06] VITALS: O2SAT 97
[2024-08-05 10:13] VITALS: BP 175/79
[2024-08-05 16:17] VITALS: PULSE 68
== END 2024-08-05 17:45 ==
LOC: 3E 05:05 → ASU 05:05